=== PATIENT | male | born 1940 | race Caucasian/White ===

== ENCOUNTER 2016-04-16 08:38 | Inpatient (IN) | payer MEDICARE, BC ==
[2016-04-16] MEDS ORDERED: Docusate Sodium 100 MG Cap PO PRN (12:03)
[2016-04-16] MEDS ORDERED: Polyethylene Glycol 3350 Powder 17 GM Packet PO PRN (12:03)
[2016-04-16] MEDS ORDERED: Acetaminophen 325 MG Tab PO PRN (12:03)
[2016-04-16] MEDS: hydrALAZINE 10 MG Tab PO SCH ×2 (13:15→21:45)
[2016-04-16] MEDS ORDERED: Pravastatin 20 MG Tab PO SCH (20:00)
[2016-04-16] MEDS: amLODIPine 10 MG Tab PO SCH (21:46)
[2016-04-16] MEDS: Donepezil 5 MG Tab PO SCH (21:46)
[2016-04-17] MEDS: Menthol/Zinc Oxide Ointment 3.5 GM Tube TOP SCH ×3 (08:40→20:00)
[2016-04-17] MEDS: hydrALAZINE 10 MG Tab PO SCH ×2 (08:50→12:25)
[2016-04-17] MEDS: Cyanocobalamin (Vitamin B12) 1,000 MCG Tab PO SCH (08:51)
[2016-04-17] MEDS: Aspirin 81 MG Tab.EC PO SCH (08:51)
[2016-04-17] MEDS: QUEtiapine 25 MG Tab PO PRN (13:04)
[2016-04-17] MEDS: Acetaminophen/HYDROcodone 325-5 MG Tab PO PRN (13:04)
[2016-04-18] MEDS: Acetaminophen/HYDROcodone 325-5 MG Tab PO PRN (00:52)
[2016-04-18] MEDS: hydrALAZINE 10 MG Tab PO SCH ×2 (00:54→10:05)
[2016-04-18] MEDS: amLODIPine 10 MG Tab PO SCH ×2 (00:55→21:11)
[2016-04-18] MEDS: Tamsulosin 0.4 MG Cap.ER PO SCH ×2 (00:55→09:43)
[2016-04-18] MEDS: Donepezil 5 MG Tab PO SCH ×2 (00:55→21:11)
[2016-04-18] MEDS: QUEtiapine 25 MG Tab PO PRN (00:56)
[2016-04-18 08:04] LABS: A/G RATIO 0.73; ALBUMIN 2.2 g/dL (3.4-5.0); ALKALINE PHOSPHATASE 36 U/L (46-116); BILIRUBIN TOTAL 0.6 mg/dL (0.2-1.0); CALCIUM 7.8 mg/dL (8.5-10.1); CHLORIDE,CL 105 mmol/L (98-107); CORRECTED CALCIUM 9.24 mg/dL (8.5-10.1); CREATININE 0.9 mg/dL (0.70-1.30); EST CRCL DRUG DOSING (CG) 74.37 mL/min; ESTIMATED GFR > 60; GLUCOSE RANDOM 127 mg/dL (74-106)
--- NOTE | 2016-04-18 08:38 | PN ---
Progress Note for STANTON GARDINER Date: 04/18/2016 Room #: VM.217 SUBJECTIVE: This is a 76-year-old who has been on swing bed after being down at home in rhabdomyolysis and acute renal failure, which resolved. The patient's CK is still elevated up to 336 today. He got combative yesterday. He did get his Seroquel and a hydrocodone, and then slept most of the day. He is still requiring straight cath at least 3 times a day. He is voiding some on his own. We started Flomax last night. Blood pressures are under good control now. Hydralazine was a new med for him started at 10 mg t.i.d. Otherwise, they were able to get him up in the chair with a standing lift. ASSESSMENT: 1. Essential hypertension, under better control. I am going to decrease the hydralazine to once daily and try to taper that off. 2. Urinary retention, probably due to benign prostatic hypertrophy. Flomax was just started. We will increase it to 0.8 mg if needed. We will continue to monitor the blood pressure. 3. Cognitive impairment, likely dementia. He is scheduled for an MRI on Friday. 4. Incontinence of stools. They are soft. No diarrhea. We will continue to monitor. 5. Deconditioning. He is working with PT. 6. Bilateral buttock and thigh sores. We will continue wound cares. 7. Left leg lymphedema, chronic. 8. Diet-controlled diabetes. Blood sugars are excellent. We will discontinue Accu-Chek. 9. Anemia, due to hemodilution. We will continue to monitor. 10.History of coronary artery disease. 11.Agitation. Seroquel will remain available. 12.Mild thrombocytopenia. We will repeat a CBC on 04/22/2016, with his next CK level. PLAN: The patient will continue on swing bed cares. Eventually, he will likely transition over to the alf. environmental services coordinator will be in contact with his family. I had previously discussed with them after his swing bed admission. MKA: 04/18/2016 08:12:53 MODL: 04/18/2016 08:27:32 /[id number]
[2016-04-18] MEDS: Cyanocobalamin (Vitamin B12) 1,000 MCG Tab PO SCH (09:43)
[2016-04-18] MEDS: Menthol/Zinc Oxide Ointment 3.5 GM Tube TOP SCH ×2 (09:43→21:14)
[2016-04-18] MEDS: Aspirin 81 MG Tab.EC PO SCH (09:43)
[2016-04-19] MEDS: Aspirin 81 MG Tab.EC PO SCH (08:07)
[2016-04-19] MEDS: Cyanocobalamin (Vitamin B12) 1,000 MCG Tab PO SCH (08:07)
[2016-04-19] MEDS: Menthol/Zinc Oxide Ointment 3.5 GM Tube TOP SCH ×2 (08:08→20:24)
[2016-04-19] MEDS: Tamsulosin 0.4 MG Cap.ER PO SCH (08:08)
[2016-04-19] MEDS: hydrALAZINE 10 MG Tab PO SCH (08:08)
[2016-04-19] MEDS: QUEtiapine 25 MG Tab PO PRN ×2 (10:17→19:44)
[2016-04-19] MEDS ORDERED: Gadoteridol 279.3 MG/ML 20 ML SDV IVPUSH ONE (12:39)
[2016-04-19] MEDS: Acetaminophen/HYDROcodone 325-5 MG Tab PO PRN ×2 (13:59→19:42)
[2016-04-19] MEDS: Donepezil 10 MG Tab PO SCH (19:43)
[2016-04-19] MEDS: amLODIPine 10 MG Tab PO SCH (19:43)
[2016-04-20] MEDS: Tamsulosin 0.4 MG Cap.ER PO SCH (08:25)
[2016-04-20] MEDS: Cyanocobalamin (Vitamin B12) 1,000 MCG Tab PO SCH (08:25)
[2016-04-20] MEDS: Menthol/Zinc Oxide Ointment 3.5 GM Tube TOP SCH ×2 (08:25→21:48)
[2016-04-20] MEDS: Aspirin 81 MG Tab.EC PO SCH (08:25)
[2016-04-20] MEDS: hydrALAZINE 10 MG Tab PO SCH (08:25)
[2016-04-20] MEDS: Acetaminophen/HYDROcodone 325-5 MG Tab PO PRN (19:55)
[2016-04-20] MEDS: Memantine 10 MG Tab PO SCH (19:55)
[2016-04-20] MEDS: Donepezil 10 MG Tab PO SCH (19:55)
[2016-04-20] MEDS: amLODIPine 10 MG Tab PO SCH (19:56)
[2016-04-20] MEDS: QUEtiapine 25 MG Tab PO PRN (19:56)
[2016-04-21] MEDS: Menthol/Zinc Oxide Ointment 3.5 GM Tube TOP SCH ×2 (07:41→19:42)
[2016-04-21] MEDS: Aspirin 81 MG Tab.EC PO SCH (07:41)
[2016-04-21] MEDS: Cyanocobalamin (Vitamin B12) 1,000 MCG Tab PO SCH (07:41)
[2016-04-21] MEDS: Memantine 10 MG Tab PO SCH ×2 (07:41→19:41)
[2016-04-21] MEDS: Tamsulosin 0.4 MG Cap.ER PO SCH (07:41)
[2016-04-21] MEDS: hydrALAZINE 10 MG Tab PO SCH (07:41)
[2016-04-21] MEDS: QUEtiapine 25 MG Tab PO PRN ×2 (12:37→19:40)
[2016-04-21] MEDS: Acetaminophen/HYDROcodone 325-5 MG Tab PO PRN ×2 (12:37→19:42)
[2016-04-21] MEDS: Donepezil 10 MG Tab PO SCH (19:40)
[2016-04-21] MEDS: amLODIPine 10 MG Tab PO SCH (19:40)
[2016-04-22] MEDS: Tamsulosin 0.4 MG Cap.ER PO SCH (08:05)
[2016-04-22] MEDS: Aspirin 81 MG Tab.EC PO SCH (08:05)
[2016-04-22] MEDS: Cyanocobalamin (Vitamin B12) 1,000 MCG Tab PO SCH (08:05)
[2016-04-22] MEDS: Memantine 10 MG Tab PO SCH ×2 (08:05→19:14)
[2016-04-22] MEDS: hydrALAZINE 10 MG Tab PO SCH (08:05)
[2016-04-22] MEDS: Menthol/Zinc Oxide Ointment 3.5 GM Tube TOP SCH ×2 (08:06→19:16)
[2016-04-22] MEDS: QUEtiapine 25 MG Tab PO PRN ×2 (08:06→12:29)
[2016-04-22 08:32] LABS: HEMOGLOBIN 10.7 g/dL (14.0-18.0); MEAN CORPUSCULAR HEMOGLOBIN 27.9 pg (26.0-32.0); MEAN CORPUSCULAR HGB CONC 31.5 g/dL (32.0-36.0); MEAN CORPUSCULAR VOLUME 88.8 fL (78.0-93.0); RDW CV 14.5 % (10.0-15.0); RED BLOOD CELL COUNT 3.83 x10^6/uL (4.5-6.0)
[2016-04-22 09:10] LABS: BAND PERCENT MAN 3 % (0-6); EOSINOPHILS PERCENT MAN 1 % (0-4); SEG NEUTROPHILS PERCENT MAN 75 % (50-80); TOTAL CELLS COUNTED 100
[2016-04-22] MEDS: Acetaminophen/HYDROcodone 325-5 MG Tab PO PRN ×2 (12:29→19:15)
[2016-04-22] MEDS: Donepezil 10 MG Tab PO SCH (19:14)
[2016-04-22] MEDS: amLODIPine 10 MG Tab PO SCH (19:15)
[2016-04-23] MEDS: hydrALAZINE 10 MG Tab PO SCH (07:56)
[2016-04-23] MEDS: Memantine 10 MG Tab PO SCH ×2 (07:56→19:52)
[2016-04-23] MEDS: Tamsulosin 0.4 MG Cap.ER PO SCH (07:56)
[2016-04-23] MEDS: QUEtiapine 25 MG Tab PO PRN ×2 (07:56→14:27)
[2016-04-23] MEDS: Cyanocobalamin (Vitamin B12) 1,000 MCG Tab PO SCH (07:57)
[2016-04-23] MEDS: Aspirin 81 MG Tab.EC PO SCH (07:57)
[2016-04-23] MEDS: Menthol/Zinc Oxide Ointment 3.5 GM Tube TOP SCH ×2 (07:58→19:55)
[2016-04-23 09:41] LABS: APPEARANCE,URINE CLEAR (CLEAR); BILIRUBIN,URINE NEGATIVE (NEGATIVE); GLUCOSE,URINE NEGATIVE (NEGATIVE); KETONES,URINE NEGATIVE (NEGATIVE); LEUKOCYTE ESTERASE,URINE NEGATIVE (NEGATIVE); NITRITE,URINE NEGATIVE (NEGATIVE); OCCULT BLOOD,URINE MODERATE (NEGATIVE); PH,URINE 6.5 (5.0-8.0); PROTEIN,URINE NEGATIVE (NEGATIVE); UROBILINOGEN,URINE 0.2 EU/dL (0.2)
[2016-04-23 09:49] LABS: BACTERIA,URINE NOT SEEN /HPF (NEGATIVE); MUCUS,URINE NOT SEEN /LPF (NEGATIVE); WBC,URINE NOT SEEN /HPF (NOT SEEN)
[2016-04-23] MEDS: Finasteride 5 MG Tab PO SCH (10:52)
[2016-04-23] MEDS: Acetaminophen/HYDROcodone 325-5 MG Tab PO PRN (10:52)
[2016-04-23] MEDS: Sulfamethoxazole/Trimethoprim 800-160 MG Tab PO SCH ×2 (10:52→19:52)
--- NOTE | 2016-04-23 10:58 | PN ---
Progress Note for STANTON GARDINER Date: 04/23/2016 Room #: VM.217 SUBJECTIVE: This is a 76-year-old on swing bed after an acute stay for rhabdomyolysis and acute renal failure. He has also had delirium. He has suspected underlying dementia. He had been started on Aricept about 3 months ago. Namenda was added due to behaviors. He was on Seroquel, but that was not helping, so Zyprexa was added this morning. He was able to get up with staff and move to the chair. He is calm. He is cooperative. He is answering questions. Otherwise, had been getting straight cath. Postvoid residuals have been over 400 at least 3 times daily. UA was positive. He denies any abdominal pain or burning. Bactrim was also started this morning. He has been afebrile. Blood pressures have been under good control. Hydralazine was started during his acute stay and was decreased down to once daily. He is also on Flomax. He denies having any previous problems with his prostate. His memory is not all that reliable. He talks about he lived by himself, but his brother lived with him, that he has to go to [place] because he might work there, but then he says he is sort of retired. OBJECTIVE: Vital Signs: His temperature 98.4, pulse 77, blood pressure 136/67, respiratory rate 18, and O2 98% on room air. General: He is in no acute distress. Heart: Regular rate and rhythm. Respiratory: Lung sounds are clear to auscultation bilaterally without crackles or wheezes. Abdomen: Positive bowel sounds. Soft and nontender. Extremities: Warm and dry. He has lymphedema changes over the left leg. He still has some sores reported by nursing on his thighs. I did not examine him as he was wearing jeans. He has been incontinent of urine as well. Prostate exam: Firm and enlarged, no nodules LABORATORY DATA: Lab work was done on 04/22/2016, did show his CK to finally normalize. His hemoglobin was stable at 10.7. ASSESSMENT: 1. Essential hypertension, controlled. We will stop hydralazine and see how he does. He is now on Flomax for his prostate. He is also on Norvasc previously. 2. Urinary tract infection. We will culture the urine. We will start him on Bactrim. 3. Cognitive impairment, likely dementia with behavioral disturbance. He got some Zyprexa this morning. It seemed to help. We will continue that. MRI was done and did not show any stroke. 4. Benign prostatic hypertrophy with urinary retention. We placed the Lerner. We will keep him on Flomax, but increased to 0.8 daily. We will start Proscar. 5. Deconditioning, working with PT. 6. Left leg edema. Kike wrap is in place. 7. Bilateral buttock/thigh sores. He is getting wound cares. 8. Diet-controlled diabetes. Blood sugars were all excellent. I discontinued Accu-Chek. 9. Anemia, stable. He will need repeat lab work on that in 1 week. B12 and TSH were normal previously. 10.History of coronary artery disease. 11.Thrombocytopenia, resolved on recent CBC. PLAN: At this point, the patient will continue swing bed cares. I will discuss his overall care again with his brother today. He is agreeable to go to the [facility] for further therapies when he is done with physical therapy here. I would recommend a psych assessment at that point. I will also refer him to Urology due to his urinary retention. SHMUELA: 04/23/2016 10:25:13 MODL: 04/23/2016 10:52:40 /[id number] FLOR
[2016-04-23] MEDS: OLANZapine 5 MG Tab PO SCH (11:06)
[2016-04-23] MEDS: amLODIPine 10 MG Tab PO SCH (19:53)
[2016-04-23] MEDS: Donepezil 10 MG Tab PO SCH (19:53)
--- NOTE | 2016-04-23 23:58 | DISCH ---
PRIMARY DISCHARGE DIAGNOSES: 1. Acute renal failure secondary to rhabdomyolysis. The patient being on the toilet for 3 days without getting assistance. 2. Bilateral thigh and buttock sores due to being on the toilet for 3 days. Present on admission 9.5 x 3 cm on the left buttock with drainage and 1 x 2 cm on the R buttock 3. Cognitive impairment, likely dementia with behavioral disturbance. The patient had already been worked up for this as an outpatient and was started on Aricept. He had behavioral changes during his stay and Namenda was added along with Zyprexa and Seroquel p.r.n. The patient did undergo a mini-mental status exam and OT evaluation. He scored just a 16/30 on 04/17/2016; but he had episodes where he was more lucid, he was making some sense, but still he would say things like he did not know exactly where he lived and he made it sound like he was still working, going to [place]. He scored a 3.3/5.8 on his ACL and only 3.5/6 on the Medbox. 4. Acute anemia probably related to hemodilution with stable hemoglobins on discharge. No evidence of bleeding. 5. Urinary retention likely due to benign prostatic hypertrophy requiring straight catheterization multiple occasions with postvoid residual over 400. He was started on Flomax, but Lerner was placed on discharge as it was felt urinary retention was relating to his agitation and also he had the wounds that were not healing properly due to his incontinence. 6. Diet controlled diabetes. 7. Impaired mobility and deconditioning. 8. Chronic left leg lymphedema. 9. Essential hypertension, controlled. 10.Acute renal failure, resolved. 11.Remote history of coronary artery disease with previous stenting. Statin discontinued due to rhabdomyolysis. Plavix switched over to aspirin, he was tolerating that. 12.Episodes of acute agitation and delirium requiring one on one assistance. MRI was done, it was negative for stroke. 13.Mild thrombocytopenia, resolved prior to discharge. HOSPITAL COURSE: Otherwise, the patient remained afebrile throughout his stay. He denied any abdominal pain or dysuria. However, he had a UA which was positive for infection on 04/23 with 10-20 wbc's and was treated with Bactrim. It was at that point on the morning before when he was quite agitated, he was even swearing and hitting at staff. This was discussed with him on the next day and he did not even remember it. He was aware of the month was March and it was winter, but he really had to look at the calender to figure those things out. Otherwise, he was denying any chest pain, no trouble breathing. His left leg edema was stable. Again, he had the MRI which was negative for stroke. Lab work was monitored. His CK level was down to 132 on discharge which was normal. Blood sugars were all quite acceptable. Hemoglobin was at 10.7, which was actually up from his previous check and platelets had returned to normal. His last creatinine was 0.9. Due to elevated blood pressure during his stay, at one point, he was started on hydralazine but that was discontinued and his Norvasc was increased up to 10 mg daily. He previously took Lasix, but that was not restarted. New Medications include the Norvasc increased to 10 mg, aspirin started, Lipitor stopped, Lasix stopped, Zyprexa 5 mg daily, Seroquel as needed, hydrocodone as needed for pain. He was getting that about 2 times daily for some leg pain and especially having pain after pulling out his Lerner. He was also started on Proscar and Flomax. He was receiving local wound cares for his thigh wounds with barrier cream. He was also started on Namenda and increased up to 10 mg twice daily on discharge. He was taking stool softeners as needed and Tylenol as needed for pain. He was started on Bactrim 1 tab b.i.d. to complete a 5 day course. DISCHARGE PLANS AND INSTRUCTIONS: The patient is being going up to [facility] for further PT, OT and supervised nursing care. He will have neuro- psych testing in May which was already arranged for his mental status. His brother is aware. We will leave the Lerner in place and he will see Urology on 04/29/2016 to consider a voiding trial. He will continue Proscar and Flomax. He will be on Zyprexa 5 mg daily for moods and Seroquel p.r.n. Psych consult was placed for dementia with behavioral disturbance and Neurology referral was made. His BMP, CBC, TSH, and B12 tested in 1 week. He will continue Aricept 5 mg daily, consider increasing to 10 mg in the future. Hydrocodone will continue for pain, but we would like to wean off that. He will keep the left leg wrapped and elevated. He will have local wound cares to the pressure ulcers over the buttocks. He should be only use barrier cream on the edges of the dressing to prevent further breakdown and should place optifoam over the wounds daily and change more than daily if saturated which the left wound will likely be. PHYSICAL EXAMINATION: Vital Signs: On discharge his vitals are temperature 98.4, pulse 77, blood pressure 136/67, respiratory rate 18, and O2 of 98% on room air. General: He is in no acute distress. Heart: Regular rate and rhythm. S1, S2 without murmur. Lungs: Sounds are clear to auscultation bilaterally without crackles or wheezes. Abdomen: He has positive bowel sounds. Soft and nontender. Extremities: Warm and dry. There is lymphedema over the left leg. Right leg is normal. He has some redness and skin tears over the posterior thighs bilaterally. There is no surrounding redness or drainage. Mental Status: The patient is orientated to time. He is aware he is at the hospital, but he says he lives there when really this is not his home. He does not remember meeting me when I have been following him as his doctor since the 15 of April. YULIANA: 04/23/2016 22:11:39 MODL: 04/23/2016 23:53:34 /[id number]
[2016-04-24 06:44] VITALS: BP 144/69
[2016-04-24] MEDS ORDERED: Tamsulosin 0.4 MG Cap.ER PO SCH (08:00)
[2016-04-24] MEDS: OLANZapine 5 MG Tab PO SCH (08:01)
[2016-04-24] MEDS: Aspirin 81 MG Tab.EC PO SCH (08:01)
[2016-04-24] MEDS: Menthol/Zinc Oxide Ointment 3.5 GM Tube TOP SCH (08:01)
[2016-04-24] MEDS: Memantine 10 MG Tab PO SCH (08:01)
[2016-04-24] MEDS: Sulfamethoxazole/Trimethoprim 800-160 MG Tab PO SCH (08:01)
[2016-04-24] MEDS: Finasteride 5 MG Tab PO SCH (08:01)
[2016-04-24] MEDS: Cyanocobalamin (Vitamin B12) 1,000 MCG Tab PO SCH (08:01)
== END 2016-04-24 13:40 | DRG 683 ==
LOC: VM.MS 10:00
PROVIDERS: ADMIT Internal Medicine; ATTEND Internal Medicine
DX: N17.9 Acute kidney failure, unspecified (principal); M62.82 Rhabdomyolysis; N39.0 Urinary tract infection, site not specified; F03.91 Unspecified dementia, unspecified severity, with behavioral disturbance; F05 Delirium due to known physiological condition; N40.1 Benign prostatic hyperplasia with lower urinary tract symptoms; R33.8 Other retention of urine; D69.6 Thrombocytopenia, unspecified; I10 Essential (primary) hypertension; E11.9 Type 2 diabetes mellitus without complications; D64.9 Anemia, unspecified; I25.10 Atherosclerotic heart disease of native coronary artery without angina pectoris; L98.419 Non-pressure chronic ulcer of buttock with unspecified severity
CPT/HCPCS: 36415; 70553; 80053; 81001; 82550; 82962; 85025; 87086; 97110-GP; 97530-GP; 97532-GO; 97535-GO; A9270-GY